=== PATIENT | male | born 1990 | race Caucasian/White ===

== ENCOUNTER → 2020-08-28 | Outpatient (CLI) | payer OTHER ==
--- NOTE | 2020-08-29 04:04 | MR ---
EXAMINATION TYPE: MR knee LT wo con DATE OF EXAM: 08/28/2020 COMPARISON: None HISTORY: Left knee pain, injury 08-14-20. Multiplanar multiecho imaging of the left knee was performed without contrast. The anterior and posterior cruciate ligaments are intact. There is a mild to moderate knee joint effu rivera. There is also 2 x 1 cm popliteal cyst. The medial and lateral menisci appear intact. The collat eral ligaments appear intact. There is edema in the posterior aspect of the medial tibial condyle. This extends over a large area t hat measures 3 x 4.5 cm. There is vertical fracture line through the posterior aspect of the heel tib ial plateau. There is 15 mm posterior chip fracture without displacement. There is subcutaneous edema around the knee. IMPRESSION: There is a chip fracture of the posterior aspect of the medial tibial plateau without significant dis placement. There is a large area of bone bruise and edema in the medial tibial condyle. No evidence of ligamentous tear. No evidence of meniscal tear. Moderate size knee joint effusion with popliteal cyst.
== END | disposition home or self-care (01) ==
LOC: RADMRIMAIN 21:50
PROVIDERS: ATTEND Orthopaedic Surgery
DX: S82.145A Nondisplaced bicondylar fracture of left tibia, initial encounter for closed fracture (principal); S80.12XA Contusion of left lower leg, initial encounter; R60.0 Localized edema; M25.462 Effusion, left knee; M71.22 Synovial cyst of popliteal space [Baker], left knee